=== PATIENT | male | born 1945 | race Caucasian/White ===

== ENCOUNTER 2018-07-20 18:48 | Observation (INO) | payer MEDICARE ==
--- NOTE | 2018-07-20 19:10 | Emergency Department Record ---
History of Present Illness - General Chief complaint: Cold Stated complaint: COLD LIKE, POLY-URIA Time Seen by Provider: 07/20/18 18:59 Source: Patient, Family Mode of Arrival: Wheelchair Limitations: No limitations - History of Present Illness Initial comments: 72 yo male presents to ED for evaluation of cough, weakness, and polyuria that began several days ago. Patient reports that he has become progressively weaker prompting visit to the ED this evening. Patient denies fevers/chills, denies abdominal pain symptoms. Patient reports a history of atrial fibrillation, HTN, DM. MD complaint: Other Onset/Timin -: Days(s) Severity: Moderate Consistency: Constant Improves with: None Worsens with: Other (Exertion) Associated Symptoms: Cough - Related Data Home Medications Medication Instructions Recorded Confirmed Last Taken Allopurinol 100 mg PO ASDIR PRN 07/20/18 07/20/18 Unknown Amlodipine Besylate/Benazepril 1 each PO DAILY 07/20/18 07/20/18 07/19/18 [Amlodipine-Benazepril 5-10 mg] Colchicine [Colcrys] 1 tab PO ASDIR PRN 07/20/18 07/20/18 Unknown Dabigatran Etexilate Mesylate 150 mg PO ASDIR 07/20/18 07/20/18 Unknown [Pradaxa] Sertraline HCl [Zoloft] 100 mg PO DAILY 07/20/18 07/20/18 07/19/18 Simvastatin 20 mg PO DAILY 07/20/18 07/20/18 07/19/18 Allergies Allergy/AdvReac Type Severity Reaction Status Date / Time No Known Drug Allergies Allergy Verified 07/20/18 19:11 Review of Systems Constitutional: Reports: Malaise, Weakness. Denies: Chills, Fever, Night sweats Eyes: Denies: Eye discharge, Eye pain ENT: Denies: Congestion, Ear pain, Epistaxis, Throat pain Respiratory: Reports: Cough. Denies: Dyspnea Cardiovascular: Reports: Dyspnea on exertion. Denies: Chest pain Endocrine: Reports: Fatigue. Denies: Heat or cold intolerance Gastrointestinal: Denies: Abdominal pain, Diarrhea, Nausea, Vomiting Genitourinary: Reports: Dysuria. Denies: Incontinence, Retention Musculoskeletal: Reports: Myalgia. Denies: Arthralgia, Back pain Skin: Denies: Bruising, Change in color Neurological: Denies: Confusion, Headache, Seizure Psychiatric: Denies: Anxiety Hematological/Lymphatic: Denies: Anemia, Blood Clots Physical Exam - General General Appearance: Alert, Oriented x3, Cooperative, Moderate distress, Other ( Patient appears weak, diaphoretic on examination) Limitations: No limitations - Head Head exam: Atraumatic, Normocephalic, Normal inspection Head exam detail: negative: Abrasion, Contusion, Nice's sign, General tenderness, Hematoma, Laceration - Eye Eye exam: Normal appearance. negative: Conjunctival injection, Periorbital swelling, Periorbital tenderness, Scleral icterus - ENT Ear exam: negative: Auricular hematoma, Auricular trauma Nasal Exam: negative: Active bleeding, Discharge, Dried blood, Foreign body Mouth exam: negative: Drooling, Laceration, Muffled voice, Tongue elevation - Neck Neck exam: Normal inspection. negative: Meningismus, Tenderness - Respiratory Respiratory exam: Normal lung sounds bilaterally. negative: Rales, Respiratory distress, Rhonchi, Stridor - Cardiovascular Cardiovascular Exam: Irregular rhythm, Tachycardia - GI/Abdominal GI/Abdominal exam: Soft. negative: Rebound, Rigid, Tenderness - Rectal Rectal exam: Deferred - exam: Deferred - Extremities Extremities exam: Normal inspection. negative: Pedal edema, Tenderness - Back Back exam: Denies: CVA tenderness (R), CVA tenderness (L) - Neurological Neurological exam: Alert, Normal gait, Oriented X3 - Psychiatric Psychiatric exam: Normal affect, Normal mood - Skin Skin exam: Normal color. negative: Abrasion Type of lesion: negative: abrasion Course - Reevaluation(s) Reevaluation #1: 07/20/18 19:19 EKG: Atrial Fibrillation 117 Irregular rate, rhythm ST-T wave changes I, AVL Reevaluation #2: 07/20/18 19:48 CXR: ? RML infiltrate Laboratory studies were reviewed, influenza positive. Labs are otherwise negative for an acute process. UA appears negative for infection. 07/20/18 19:55 Case was discussed with Janeen Barry NP, will accept admission at this time. Patient was started on Tamiflu as well in the ED, Rocephin and Zithromax ordered to infuse as well for possible RML infiltrate. Medical Decision Making - Lab Data Result diagrams: 07/20/18 19:10 07/20/18 19:10 Disposition Disposition: Admit Clinical Impression: Influenza A, Generalized weakness CAP (community acquired pneumonia) Qualifiers: Laterality: right Lung location: middle lobe of lung Qualified Code(s): J18.1 - Lobar pneumonia, unspecified organism Disposition: Still a Patient at [facility] Decision to Admit: Admit from ER Decision to Admit Date: 07/20/18 Decision to Admit Time: 19:56 Condition: (2) Stable Forms: Patient Portal Access Time of Disposition: 19:56 Quality - Quality Measures Quality Measures: N/A - Blood Pressure Screening Does Patient Have Any of the Following: No Blood Pressure Classification: Pre-Hypertensive BP Reading Systolic Measurement: 92 Diastolic Measurement: 82 Screening for High Blood Pressure: < Pre-Hypertensive BP, F/U Documented > [ [id number]] Pre-Hypertensive Follow-up Interventions: Referral to alternative/primary care provider.
[2018-07-20] MEDS ORDERED: 0.9 % SODIUM CHLORIDE 1000ML 1,000 ML IV SCH (19:15)
[2018-07-20 19:19] LABS: HEMATOCRIT 47.1 % (42.0-52.0); HEMOGLOBIN 16.2 gm/dl (14.0-18.0); MEAN CELL VOLUME 92.5 fl (81-97); MEAN CORPUSCULAR HEMOGLOBIN 31.8 pg (27-33); MEAN CORPUSCULAR HGB CONC 34.4 g/dl (32-36); PLATELET COUNT 176 K/uL (130-400); RED BLOOD COUNT 5.09 M/uL (4.40-5.70); RED CELL DISTRIBUTION WIDTH 12.6 % (11.5-14.5); WHITE BLOOD COUNT W/O DIFF 8.3 K/uL (4.2-12.2)
[2018-07-20 19:20] LABS: URINE APPEARANCE CLEAR; URINE BILIRUBIN NEGATIVE (NEGATIVE); URINE BLOOD SMALL (NEGATIVE); URINE COLOR YELLOW; URINE GLUCOSE (UA) NEGATIVE (NEGATIVE); URINE KETONE NEGATIVE (NEGATIVE); URINE LEUKOCYTE ESTERASE NEGATIVE (NEGATIVE); URINE NITRITE NEGATIVE (NEGATIVE); URINE PROTEIN TRACE (NEGATIVE)
[2018-07-20 19:25] LABS: INFLUENZA A POSITIVE (NEGATIVE); INFLUENZA B NEGATIVE (NEGATIVE)
[2018-07-20 19:31] LABS: URINE AMORPHOUS SEDIMENT FEW; URINE EPITHELIAL CELLS NONE SEEN (FEW); URINE RBC 0 - 2 (NONE SEEN); URINE WBC NONE SEEN (0-2/hpf)
[2018-07-20 19:37] LABS: BLOOD UREA NITROGEN 10 mg/dL (8-23); CREATININE 1.1 mg/dL (0.7-1.2); EST GLOMERULAR FILTRATION RATE > 60 mL/min
[2018-07-20] MEDS ORDERED: IBUPROFEN 600 MG TABLET PO ONE (19:38)
[2018-07-20 19:40] LABS: GLUCOSE,RANDOM 123 mg/dL (74-109)
[2018-07-20 19:43] LABS: ALB/GLOB RATIO 1.4 (1.1-1.8); ALBUMIN 4.6 g/dL (4.0-5.0); ALKALINE PHOSPHATASE 57 U/L (40-129); ALT/SGPT 19 U/L (<41); AST/SGOT 23 U/L (10.0-50.0)
[2018-07-20] MEDS ORDERED: OSTELTAMIVIR 75 MG CAP PO ONE (19:55)
[2018-07-20] MEDS ORDERED: KETOROLAC 30 MG/ML VIAL IVP ONE (20:10)
[2018-07-20] MEDS ORDERED: IBUPROFEN 600 MG TABLET PO PRN (21:09)
[2018-07-20] MEDS ORDERED: 0.9 % SODIUM CHLORIDE 1000ML 1,000 ML IV PRN (21:09)
[2018-07-20] MEDS: CEFTRIAXONE 1GM/50ML BAG 1 GM/50 ML BAG IVPB SCH (21:46)
[2018-07-20] MEDS ORDERED: AZITHROMYCIN 500 MG in 0.9 % SODIUM CHLORIDE 250ML 250 ML IVPB SCH (22:00)
[2018-07-21] MEDS: ACETAMINOPHEN 500 MG TABLET PO PRN ×3 (05:23→21:52)
--- NOTE | 2018-07-21 07:22 | RADIOLOGY REPORT ---
EXAM: CHEST, TWO VIEWS HISTORY: COUGH AND FEVER. TECHNIQUE: PA and lateral views of the chest were obtained. Comparison: Two view chest 10/18/10. FINDINGS: The heart size is stable when compared to the prior study. The right heart border is not as well as the prior exam. This would raise the possibility of some current right middle lobe infiltrate although difficult to confirm on the lateral view. Follow-up PA and lateral suggested short term if the patient's symptoms persist. The left lung appears clear. No definite pleural effusion or pneumothorax evident. Thoracic curve to the right again noted. IMPRESSION: 1. STABLE HEART SIZE. 2. THORACIC CURVE TO THE RIGHT BEFORE. 3. SOMEWHAT POOR VISUALIZATION OF THE RIGHT HEART BORDER COMPARED TO THE PRIOR STUDY, BUT NO NO DEFINITE ACUTE INFILTRATE SEEN ON THE LATERAL. CONSIDER SHORT TERM FOLLOW-UP IF SYMPTOMS PERSIST. JOB NUMBER: [id number] [facility]
[2018-07-21 07:33] LABS: ALB/GLOB RATIO 1.2 (1.1-1.8); ALBUMIN 3.6 g/dL (4.0-5.0); ALKALINE PHOSPHATASE 46 U/L (40-129); ALT/SGPT 17 U/L (<41); AST/SGOT 24 U/L (10.0-50.0); BLOOD UREA NITROGEN 11 mg/dL (8-23); CREATININE 0.8 mg/dL (0.7-1.2); EST GLOMERULAR FILTRATION RATE > 60 mL/min; GLUCOSE,RANDOM 101 mg/dL (74-109); TOTAL PROTEIN 6.6 g/dL (6.6-8.7)
[2018-07-21] MEDS: SERTRALINE HCL 50 MG TABLET PO SCH (09:28)
[2018-07-21] MEDS: OSTELTAMIVIR 75 MG CAP PO SCH ×2 (09:28→21:52)
[2018-07-21] MEDS: SIMVASTATIN 20 MG TABLET PO SCH (09:28)
[2018-07-21] MEDS: DABIGATRAN 150 MG PO SCH ×2 (10:33→21:59)
[2018-07-21] MEDS: BENAZEPRIL 20 MG TABLET PO SCH (10:43)
[2018-07-21] MEDS: AMLODIPINE BESYLATE 5MG TAB PO SCH (10:43)
--- NOTE | 2018-07-21 16:58 | History & Physical ---
History of Present Illness - Date of Service Date of Service for History & Physical: 07/21/18 - History of Present Illness Admitting Diagnosis: Influenza A. Generalized weakness History of Present Illness: Eleazar Green is a 72 y.o. M who presented to the ED d/t cough, weakness and increased urination x 3-4 days. Reported that the progressive weakness led to the ED visit. PMHx significant for HTN and atrial fibrillation. Stated that he rarely gets sick, last illness 3-4 years ago when he was diagnosed with PNA. Denied being around any sick contact recently. Lives at home with . ED Course: Vitals: T 98.3, P 124, BP 92/52, SPO2 94% on RA EKG: Atrial Fibrillation, rate 117 U/A: trace blood CXR: Questionable RML infiltrate Influenza A + WBC 8.3, Neutrophils 89% Started on Tamiflu for Influenza A, Rocephin and Zithromax for possible RML Infiltrate 07/21/18 1445: Vitals 97.5 109 142/88 94% RA Lying in bed, alert and appropriate. Reports that he is feeling better yesterday. States that he felt at "25% normal" yesterday and today feels about "50% normal". C/o excessive weakness and states "if I didn't feel so weak, I would feel okay to go home". C/o body aches and chest discomfort d/t coughing. Denies SOB, chest pain, LE edema or palpitations. States that he has had to get up to urinate more than normal but when he does go, it isn't "more" urine than normal. Travel Screening - Travel/Exposure Within Last 30 Days Have you traveled within the last 30 days?: No - Travel/Exposure Within Last Year Have you traveled outside the [place] in the last year?: No - Additonal Travel Details Have you been exposed to anyone with a communicable illness?: No - Travel Symptoms Symptom Screening: Headache, Joint & Muscle Aches, Weakness, Fatigue, Lack of Appetite, Chills Review of Systems Reviewed: No additional complaints except as noted below Constitutional: Reports: Malaise, Weakness. Denies: Chills, Fever, Night sweats Eyes: Denies: Eye discharge, Eye pain ENT: Denies: Congestion, Ear pain, Epistaxis, Throat pain Respiratory: Reports: Cough. Denies: Dyspnea Cardiovascular: Denies: Chest pain, Edema Endocrine: Reports: Fatigue, Polyuria. Denies: Heat or cold intolerance Gastrointestinal: Denies: Abdominal pain, Diarrhea, Nausea, Vomiting Genitourinary: Denies: Incontinence, Retention Musculoskeletal: Reports: Myalgia. Denies: Arthralgia, Back pain Skin: Denies: Bruising, Change in color Neurological: Denies: Confusion, Headache, Seizure Psychiatric: Denies: Anxiety Hematological/Lymphatic: Denies: Anemia, Blood Clots Past Medical History - SOCIAL HISTORY Smoking Status: Never smoker Alcohol Use: Occasional Alcohol Use Comment: Beer Drug Use: None - RESPIRATORY Hx Respiratory Disorders: Yes Hx Pneumonia: Yes (2012) - CARDIOVASCULAR Hx Cardio Disorders: Yes Hx Irregular Heartbeat: Yes () - NEURO Hx Neuro Disorders: No - GI Hx GI Disorders: No - Hx Genitourinary Disorders: No - ENDOCRINE Hx Endocrine Disorders: No - MUSCULOSKELETAL Hx Musculoskeletal Disorders: Yes Hx Arthritis: (Yes- Mild) Hx Back Injury: Yes - PSYCH Hx Psych Problems: Yes - HEMATOLOGY/ONCOLOGY Hx Hematology/Oncology Disorders: No Family Medical History Any Significant Family History?: No Hx Heart Disease: Father, Mother, Grandparents Hx HTN: Mother, Brother/Sister Hx Stroke: Mother H&P Meds/Allergies - Allergies Allergies: Allergies Allergy/AdvReac Type Severity Reaction Status Date / Time No Known Drug Allergies Allergy Verified 07/20/18 19:11 - Home Medications Home Medications Medication Instructions Recorded Confirmed Last Taken Allopurinol 100 mg PO ASDIR PRN 07/20/18 07/20/18 Unknown Amlodipine Besylate/Benazepril 1 each PO DAILY 07/20/18 07/20/18 07/19/18 [Amlodipine-Benazepril 5-10 mg] Colchicine [Colcrys] 1 tab PO ASDIR PRN 07/20/18 07/20/18 Unknown Dabigatran Etexilate Mesylate 150 mg PO BID 07/20/18 07/21/18 Unknown [Pradaxa] Sertraline HCl [Zoloft] 100 mg PO DAILY 07/20/18 07/20/18 07/19/18 Simvastatin 20 mg PO DAILY 07/20/18 07/20/18 07/19/18 - Active Medications Active Medications: Current Medications Acetaminophen (Tylenol 500mg Tab) 1,000 mg PO Q6H PRN PRN Reason: PAIN - MILD(1-4)/FEVER Last Admin: 07/21/18 15:32 Dose: 1,000 mg Amlodipine Besylate (Norvasc) 5 mg PO DAILY [facility] Last Admin: 07/21/18 10:43 Dose: 5 mg Azithromycin (Zithromax) 500 mg PO QHS [facility] Benazepril HCl (Lotensin) 10 mg PO DAILY [facility] Last Admin: 07/21/18 10:43 Dose: 10 mg Sodium Chloride () 1,000 mls @ 100 mls/hr IV .Q10H PRN PRN Reason: LARGE VOLUME IV Last Infusion: 07/21/18 15:43 Dose: 50 mls/hr CEFTRIAXONE 1GM/50ML BAG (Ceftriaxone 1 Gm-D5w Bag) 1 gm in 50 mls @ 100 mls/ hr IVPB Q24H [facility] Last Infusion: 07/20/18 22:20 Dose: Infused Ibuprofen (Motrin 600mg) 600 mg PO Q6H PRN PRN Reason: MUSCLE SPASMS Oseltamivir Phosphate (Tamiflu) 75 mg PO BID [facility] Last Admin: 07/21/18 09:28 Dose: 75 mg Patient Own Med: Dabigatran (Pradaxa) 150 Mg Cap 1 each PO BID [facility] Last Admin: 07/21/18 10:33 Dose: 1 each Sertraline HCl (Zoloft) 100 mg PO DAILY [facility] Last Admin: 07/21/18 09:28 Dose: 100 mg Simvastatin (Zocor) 20 mg PO DAILY [facility] Last Admin: 07/21/18 09:28 Dose: 20 mg Physical Exam - Vital Signs Vital Signs: Vital Signs - Last 24 Hrs Temp Pulse Pulse Resp BP BP Pulse Ox 07/21/18 13:00 97.5 F L 109 H 16 142/88 94 L 07/21/18 10:19 81 18 07/21/18 05:07 99.2 F 83 18 126/96 07/20/18 23:57 100 H 20 07/20/18 20:55 99.5 F 100 H 20 146/82 94 L 07/20/18 20:49 95 H 18 157/89 96 07/20/18 19:43 107 H 18 154/92 93 L 07/20/18 19:02 98.3 F 124 H 20 92/82 94 L - General General Appearance: Alert, Oriented x3, Cooperative, Mild distress Limitations: No limitations - Head Head exam: Atraumatic, Normocephalic, Normal inspection Head exam detail: negative: Abrasion, Contusion, Nice's sign, General tenderness, Hematoma, Laceration - Eye Eye exam: Normal appearance. negative: Conjunctival injection, Periorbital swelling, Periorbital tenderness, Scleral icterus - ENT Ear exam: negative: Auricular hematoma, Auricular trauma Nasal Exam: negative: Active bleeding, Discharge, Dried blood, Foreign body Mouth exam: negative: Drooling, Laceration, Muffled voice, Tongue elevation - Neck Neck exam: Normal inspection. negative: Meningismus, Tenderness - Respiratory Respiratory exam: Decreased breath sounds. negative: Rales, Respiratory distress, Rhonchi, Stridor - Cardiovascular Cardiovascular Exam: Irregular rhythm, Tachycardia - GI/Abdominal GI/Abdominal exam: Soft. negative: Rebound, Rigid, Tenderness - Rectal Rectal exam: Deferred - exam: Deferred - Extremities Extremities exam: Normal inspection. negative: Pedal edema, Tenderness - Back Back exam: Denies: CVA tenderness (R), CVA tenderness (L) - Neurological Neurological exam: Alert, Normal gait, Oriented X3 - Psychiatric Psychiatric exam: Normal affect, Normal mood - Skin Skin exam: Normal color. negative: Abrasion Type of lesion: negative: abrasion Results - Labs Result Diagrams: 07/20/18 19:10 07/21/18 06:28 Labs Last 24 Hours: Laboratory Results - last 24 hr 07/20/18 07/20/18 07/20/18 19:00 19:00 19:10 WBC 8.3 RBC 5.09 Hgb 16.2 Hct 47.1 MCV 92.5 MCH 31.8 MCHC 34.4 RDW 12.6 Plt Count 176 MPV 9.0 Neutrophils % 89.0 H Eosinophils % Not Reportable Basophils % Not Reportable Lymphocytes 3.0 L Monocytes 8.0 Sodium Potassium Chloride Carbon Dioxide Anion Gap BUN Creatinine Estimated GFR Random Glucose Lactic Acid Calcium Total Bilirubin AST ALT Alkaline Phosphatase Troponin T Total Protein Albumin Globulin Albumin/Globulin Ratio Urine Color Yellow Urine Appearance Clear Urine pH 6.5 Ur Specific [place] 1.010 Urine Protein Trace H Urine Glucose (UA) Negative Urine Ketones Negative Urine Blood Small H Urine Nitrite Negative Urine Bilirubin Negative Urine Urobilinogen 1.0 Ur Leukocyte Esterase Negative Urine RBC 0 - 2 Urine WBC None seen Ur Epithelial Cells None seen Amorphous Sediment Few Influenza Type A Ag Positive H Influenza Type B Ag Negative 07/20/18 07/20/18 07/20/18 19:10 19:10 19:10 WBC RBC Hgb Hct MCV MCH MCHC RDW Plt Count MPV Neutrophils % Eosinophils % Basophils % Lymphocytes Monocytes Sodium 137 Potassium 4.1 Chloride 100 Carbon Dioxide 22.0 Anion Gap 15.0 BUN 10 Creatinine 1.1 Estimated GFR > 60 Random Glucose 123 H Lactic Acid 2.2 Calcium 9.2 Total Bilirubin 0.90 AST 23 ALT 19 Alkaline Phosphatase 57 Troponin T < 0.010 Total Protein 8.0 Albumin 4.6 Globulin 3.4 Albumin/Globulin Ratio 1.4 Urine Color Urine Appearance Urine pH Ur Specific [place] Urine Protein Urine Glucose (UA) Urine Ketones Urine Blood Urine Nitrite Urine Bilirubin Urine Urobilinogen Ur Leukocyte Esterase Urine RBC Urine WBC Ur Epithelial Cells Amorphous Sediment Influenza Type A Ag Influenza Type B Ag 07/21/18 06:28 WBC RBC Hgb Hct MCV MCH MCHC RDW Plt Count MPV Neutrophils % Eosinophils % Basophils % Lymphocytes Monocytes Sodium 140 Potassium 4.0 Chloride 107 Carbon Dioxide 22.0 Anion Gap 11.0 BUN 11 Creatinine 0.8 Estimated GFR > 60 Random Glucose 101 Lactic Acid Calcium 8.3 L Total Bilirubin 0.80 AST 24 ALT 17 Alkaline Phosphatase 46 Troponin T Total Protein 6.6 Albumin 3.6 L Globulin 3.0 Albumin/Globulin Ratio 1.2 Urine Color Urine Appearance Urine pH Ur Specific [place] Urine Protein Urine Glucose (UA) Urine Ketones Urine Blood Urine Nitrite Urine Bilirubin Urine Urobilinogen Ur Leukocyte Esterase Urine RBC Urine WBC Ur Epithelial Cells Amorphous Sediment Influenza Type A Ag Influenza Type B Ag VTE H&P Assessment - Risk for VTE Risk for VTE: Yes Risk Level: High Risk Assessment Date: 07/21/18 Risk Assessment Time: 14:45 VTE Orders Placed or Will Be Placed: Yes Plan - Detailed Diagnosis and Plan (1) Influenza A Current Visit: Yes Status: Acute Base Code: J10.1 - FLU DUE TO OTH IDENT INFLUENZA VIRUS W OTH RESP MANIFEST Comment: 07/21/18 -Swabbed + Influenza A in ED -Continue Tamiflu 75mg BID -Gentle IV hydration, NS reduced from 100ml/hr to 42ml/hr (2) CAP (community acquired pneumonia) Current Visit: Yes Status: Acute Qualifiers: Laterality: right Lung location: middle lobe of lung Qualified Code(s): J18.1 - Lobar pneumonia, unspecified organism Base Code: J18.9 - PNEUMONIA, UNSPECIFIED ORGANISM Comment: 07/21/18 -CXR: Questionable RML infiltrate -WBC wnl, Neutrophils 89% -IV Rocephin and Azithromycin started -Continue IV Rocephin and Azithromycin changed to PO -Encouraged Coughing & Deep Breathing -Tylenol PRN for muscle aches (3) Full code status Current Visit: Yes Status: Acute Base Code: Z78.9 - OTHER SPECIFIED HEALTH STATUS Comment: 07/21/18 -Full code this admission (4) DVT prophylaxis Current Visit: Yes Status: Acute Base Code: [id number] - Comment: 07/21/18 -Continue home med Pradaxa 150mg BID (used for Afib) (5) Generalized weakness Current Visit: Yes Status: Acute Base Code: R53.1 - WEAKNESS Comment: 07/21 -Gentle IVF, rate reduced from 100ml/hr to 42 ml/hr -Continue antibiotics and tamiflu
[2018-07-21] MEDS: CEFTRIAXONE 1GM/50ML BAG 1 GM/50 ML BAG IVPB SCH (21:55)
[2018-07-21] MEDS ORDERED: AZITHROMYCIN 500 MG TABLET PO SCH (22:00)
[2018-07-21] MEDS ORDERED: 0.9 % SODIUM CHLORIDE 1000ML 1,000 ML IV PRN (22:33)
[2018-07-22] MEDS: SERTRALINE HCL 50 MG TABLET PO SCH (09:49)
[2018-07-22] MEDS: AMLODIPINE BESYLATE 5MG TAB PO SCH (09:49)
[2018-07-22] MEDS: BENAZEPRIL 20 MG TABLET PO SCH (09:49)
[2018-07-22] MEDS: OSTELTAMIVIR 75 MG CAP PO SCH (09:49)
[2018-07-22] MEDS: SIMVASTATIN 20 MG TABLET PO SCH (09:50)
[2018-07-22] MEDS: DABIGATRAN 150 MG PO SCH (09:53)
--- NOTE | 2018-07-22 12:04 | Discharge Summary ---
Providers Discharge Summary Date: 07/22/18 Date of admission: 07/20/18 20:43 Attending physician: TISH SOTO Primary care physician: KARSON TURNER D.O. Physical Exam - Vital Signs Vital Signs: Vital Signs - Last 24 Hrs Temp Pulse Resp BP Pulse Ox 07/22/18 05:00 97.7 F 79 20 167/88 96 07/21/18 21:00 98.2 F 77 18 118/80 96 07/21/18 13:00 97.5 F L 109 H 16 142/88 94 L - General General Appearance: Alert, Oriented x3, Cooperative, No acute distress Limitations: No limitations - Head Head exam: Atraumatic, Normocephalic, Normal inspection Head exam detail: negative: Abrasion, Contusion, Nice's sign, General tenderness, Hematoma, Laceration - Eye Eye exam: Normal appearance. negative: Conjunctival injection, Periorbital swelling, Periorbital tenderness, Scleral icterus - ENT Ear exam: negative: Auricular hematoma, Auricular trauma Nasal Exam: negative: Active bleeding, Discharge, Dried blood, Foreign body Mouth exam: negative: Drooling, Laceration, Muffled voice, Tongue elevation - Neck Neck exam: Normal inspection. negative: Meningismus, Tenderness - Respiratory Respiratory exam: Decreased breath sounds. negative: Rales, Respiratory distress, Rhonchi, Stridor - Cardiovascular Cardiovascular Exam: Irregular rhythm - GI/Abdominal GI/Abdominal exam: Soft. negative: Rebound, Rigid, Tenderness - Rectal Rectal exam: Deferred - exam: Deferred - Extremities Extremities exam: Normal inspection. negative: Pedal edema, Tenderness - Back Back exam: Denies: CVA tenderness (R), CVA tenderness (L) - Neurological Neurological exam: Alert, Normal gait, Oriented X3 - Psychiatric Psychiatric exam: Normal affect, Normal mood - Skin Skin exam: Normal color. negative: Abrasion Type of lesion: negative: abrasion Hospitalization - Hospitalization Admission Diagnosis: Influenza A. Generalized weakness - Problem List/Discharge Diagnosis (1) Influenza A Status: Acute Base Code: J10.1 - FLU DUE TO OTH IDENT INFLUENZA VIRUS W OTH RESP MANIFEST Comment: 07/22/18 -Swabbed + Influenza A in ED -Continue Tamiflu 75mg BID x 7 more doses (2) CAP (community acquired pneumonia) Status: Acute Discharge Diagnosis: Laterality: right Lung location: middle lobe of lung Qualified Code(s): J18.1 - Lobar pneumonia, unspecified organism Base Code: J18.9 - PNEUMONIA, UNSPECIFIED ORGANISM Comment: 07/22/18 -CXR: Questionable RML infiltrate -WBC wnl, Neutrophils 89% -Azithromycin 250mg daily x 4 doses (had 500mg dose) (3) Full code status Status: Acute Base Code: Z78.9 - OTHER SPECIFIED HEALTH STATUS Comment: 07/22 -Full code this admission (4) DVT prophylaxis Status: Acute Base Code: [id number] - Comment: 07/21/18 -Continue home med Pradaxa 150mg BID (used for Afib) (5) Generalized weakness Status: Acute Base Code: R53.1 - WEAKNESS Comment: 07/22/18 -Weakness improved -Continue PO Azithromycin x 4 doses and Tamiflu x 7 doses - Hospitalization Course Disposition: Home, Self-Care Hospital Course: Eleazar Green is a 72 y.o. M who presented to the ED d/t cough, weakness and increased urination x 3-4 days. Reported that the progressive weakness led to the ED visit. PMHx significant for HTN and atrial fibrillation. Stated that he rarely gets sick, last illness 3-4 years ago when he was diagnosed with PNA. Denied being around any sick contact recently. Lives at home with . ED Course: Vitals: T 98.3, P 124, BP 92/52, SPO2 94% on RA EKG: Atrial Fibrillation, rate 117 U/A: trace blood CXR: Questionable RML infiltrate Influenza A + WBC 8.3, Neutrophils 89% Started on Tamiflu for Influenza A, Rocephin and Zithromax for possible RML Infiltrate 07/21/18 1445: Vitals 97.5 109 142/88 94% RA Lying in bed, alert and appropriate. Reports that he is feeling better yesterday. States that he felt at "25% normal" yesterday and today feels about "50% normal". C/o excessive weakness and states "if I didn't feel so weak, I would feel okay to go home". C/o body aches and chest discomfort d/t coughing. Denies SOB, chest pain, LE edema or palpitations. States that he has had to get up to urinate more than normal but when he does go, it isn't "more" urine than normal. 07/22/18 1100 Up moving around room. States he is ready to go home and is feeling almost "normal". Denies body aches, pain or PARRISH. Procedures: Imaging and X-Rays 07/20/18 19:04 CHEST 2 VIEWS [RAD] Stat Cardiology Procedures 07/20/18 19:05 EKG NOW Abnormal Labs: Abnormal Lab Results 07/20/18 07/20/18 07/20/18 Range/Units 19:00 19:00 19:10 Neutrophils % 89.0 H (47-80) % Lymphocytes 3.0 L (16-45) % Random Glucose (74-109) mg/dL Calcium (8.8-10.2) mg/dL Albumin (4.0-5.0) g/dL Urine Protein Trace H (NEGATIVE) Urine Blood Small H (NEGATIVE) Influenza Type A Ag Positive H (NEGATIVE) 07/20/18 07/21/18 Range/Units 19:10 06:28 Neutrophils % (47-80) % Lymphocytes (16-45) % Random Glucose 123 H (74-109) mg/dL Calcium 8.3 L (8.8-10.2) mg/dL Albumin 3.6 L (4.0-5.0) g/dL Urine Protein (NEGATIVE) Urine Blood (NEGATIVE) Influenza Type A Ag (NEGATIVE) Condition at Discharge: (1) Good Discharge Medications - Discharge Medications Prescriptions: Azithromycin [Zithromax] 250 mg PO QHS #4 tab Oseltamivir Phosphate [Tamiflu] 75 mg PO BID #7 capsule Home Medications: Ambulatory Orders Allopurinol 100 mg PO ASDIR PRN 07/20/18 [Last Taken Unknown] Amlodipine Besylate/Benazepril [Amlodipine-Benazepril 5-10 mg] 1 each PO DAILY 07/20/18 [Last Taken 07/19/18] Colchicine [Colcrys] 1 tab PO ASDIR PRN 07/20/18 [Last Taken Unknown] Dabigatran Etexilate Mesylate [Pradaxa] 150 mg PO BID 07/20/18 [Last Taken Unknown] Sertraline HCl [Zoloft] 100 mg PO DAILY 07/20/18 [Last Taken 07/19/18] Simvastatin 20 mg PO DAILY 07/20/18 [Last Taken 07/19/18] Acetaminophen [Tylenol 500Mg Tab] 1,000 mg PO Q6H PRN tablet 07/22/18 [Last Taken Unknown] Azithromycin [Zithromax] 250 mg PO QHS #4 tab 07/22/18 [Last Taken Unknown] Ibuprofen [Motrin 600Mg] 600 mg PO Q6H PRN tablet 07/22/18 [Last Taken Unknown] Oseltamivir Phosphate [Tamiflu] 75 mg PO BID #7 capsule 07/22/18 [Last Taken Unknown] Discharge Plan - Discharge Instructions Activity at Discharge: Resume Usual Activities As Tolerated Diet at Discharge: Advance to Usual Diet Instructions: Influenza (DC) Additional Instructions: 2 Activity: Resume Usual Activities As Tolerated 2 Diet: Advance to Usual Diet 2 Consults: [] 2 Follow Up: [with Dr. Sumeet Turner] 2 Dressing/Wound Care: (Type) (Change) 2 Additional: [Continue with home medications. New medications: Azithromycin and Tamiflu, take as directed] Follow up with Primary Care Provider in week Quality Measures - Quality Measures Quality Measures: Advance Directives, Documentation of Current Medications in Medical Record, Elder Maltreatment Screen and Follow-Up Plan, Screening for High Blood Pressure and F/U Documented - Current Medications Quality Measure: Measure #130: Documentation of Current Medications Documentation of Current Medications: <Current Medications Documented/Reviewed> [[id number]] - Blood Pressure Screening Quality Measure: Screening for High Blood Pressure and Follow-Up Documented Does Patient Have Any of the Following: Active Dx of HTN Blood Pressure Classification: Pre-Hypertensive BP Reading Systolic Measurement: 157 Diastolic Measurement: 89 Screening for High Blood Pressure: Patient Exclusion, Hx of HTN [[id number]] - Advance Directives Quality Measure: Measure #47: Care Plan Advance Directives Established: Yes Advance Directives Information Provided To Patient: No Advance Directives on File: No Living Will: Yes Power of Quality Assurance Analyst: Yes Advance Care Planning: <Care Plan/Decision Maker Documented; Discussed & Documented> [[id number]] - Elder Abuse Suspicion Index Screening: Elder Abuse Suspicion Index Screening Screening Result: Negative result EASI Reference Information: Aly CHAVEZ, Tayler Portillo, Zoe D, Ny Gomez.Development and validation of a tool to assist physicians identification of elder abuse: The Elder Abuse Suspicion Index (EASI ). Journal of Elder Abuse and Neglect, 2008; 20 (3): 276-300. - Elder Maltreatment Screen Quality Measures: Elder Maltreatment Screen and Follow-Up Plan Elder Maltreatment Screen: <Negative, No Follow-Up Plan Required> [G8734]
== END 2018-07-22 13:15 | disposition home or self-care (01) ==
LOC: ER 18:48 → MEDSURG 20:43
PROVIDERS: ADMIT Internal Medicine; ATTEND Internal Medicine
DX: J09.X2 Influenza due to identified novel influenza A virus with other respiratory manifestations (principal); J18.1 Lobar pneumonia, unspecified organism; R53.1 Weakness; R35.8 Other polyuria; I48.91 Unspecified atrial fibrillation; Z79.01 Long term (current) use of anticoagulants; I10 Essential (primary) hypertension; E11.9 Type 2 diabetes mellitus without complications; I25.2 Old myocardial infarction
CPT/HCPCS: 83605; 80048; 80053 ×2; 81001; 87400; 84484; 85027; 71046; 93005; 93010; G0378 ×3; J1885; J0696 ×2; 96374; 99217; 99220; 99285; J0456; J7030; J7050